=== PATIENT | male | born 1995 | race Caucasian/White ===

== ENCOUNTER 2018-01-11 09:54 | Emergency (ER) | payer OTHER ==
[2018-01-11 10:24] VITALS: RESP 22; TEMP 98.1
[2018-01-11] MEDS ORDERED: LORazepam 1 MG TAB PO STA (11:11)
--- NOTE | 2018-01-11 11:15 | ED ---
Anxiety HPI - General Chief Complaint: Anxiety Stated Complaint: Panic attack Time Seen by Provider: 01/11/18 10:53 Source: patient, RN notes reviewed Mode of arrival: ambulatory Limitations: no limitations - History of Present Illness Initial Comments: 22-year-old male presented from for anxiety. Patient states that he has a history anxiety and used to occasionally have to take Xanax but states that ever since she was started on Effexor he has been stable. He states that he is currently on vacation camping and states that he woke up with a panic attack. Patient states he feels very anxious heart racing. Patient states that it slightly improved after being in the hospital but still continues. Patient states this is his normal symptoms for his panic attack. Patient states that he would normally take a Xanax but states he does not have with him as he is on medication. Patient is not suicidal or homicidal. - Related Data Allergies/Adverse Reactions: Allergies Allergy/AdvReac Type Severity Reaction Status Date / Time No Known Allergies Allergy Verified 01/11/18 10:24 Review of Systems ROS Statement: Those systems with pertinent positive or pertinent negative responses have been documented in the HPI. ROS Other: All systems not noted in ROS Statement are negative. Past Medical History Past Medical History: No Reported History History of Any Multi-Drug Resistant Organisms: None Reported Past Surgical History: Appendectomy Past Psychological History: Anxiety Smoking Status: Never smoker Past Alcohol Use History: None Reported Past Drug Use History: None Reported General Exam Limitations: no limitations General appearance: alert, in no apparent distress, anxious Head exam: Present: atraumatic, normocephalic, normal inspection Eye exam: Present: normal appearance, PERRL, EOMI. Absent: scleral icterus, conjunctival injection, periorbital swelling ENT exam: Present: normal exam, normal oropharynx, mucous membranes moist Neck exam: Present: normal inspection, full ROM. Absent: tenderness, meningismus, lymphadenopathy Respiratory exam: Present: normal lung sounds bilaterally. Absent: respiratory distress, wheezes, rales, rhonchi, stridor Cardiovascular Exam: Present: regular rate, normal rhythm, normal heart sounds. Absent: systolic murmur, diastolic murmur, rubs, gallop, clicks Neurological exam: Present: alert, oriented X3, CN II-XII intact Psychiatric exam: Present: anxious Skin exam: Present: warm, dry, intact, normal color. Absent: rash Course Vital Signs 01/11/18 10:19 Temperature 98.1 F Pulse Rate 109 H Respiratory 22 Rate Blood Pressure 131/75 O2 Sat by Pulse 99 Oximetry Medical Decision Making - Medical Decision Making 22-year-old male present emergency department with chief complaint of anxiety. Patient was given Ativan emergency department he is stable and will be discharged. Disposition Clinical Impression: Acute anxiety, Panic attack Disposition: HOME SELF-CARE Condition: Stable Instructions: Generalized Anxiety Disorder (ED) Additional Instructions: Please return to the Emergency Department if symptoms worsen or any other concerns. Is patient prescribed a controlled substance at d/c from ED?: No Referrals: None,Stated [Primary Care Provider] - 1-2 days Time of Disposition: 11:15
[2018-01-11 11:37] VITALS: BP 128/70; PULSE 101
== END 2018-01-11 11:37 | disposition home or self-care (01) ==
LOC: EC 09:54
DX: F41.0 Panic disorder [episodic paroxysmal anxiety] (principal)
CPT/HCPCS: 99283

== ENCOUNTER 2024-12-14 15:02 | Emergency (ER) | payer BC ==
[2024-12-14 15:11] VITALS: RESP 18
--- NOTE | 2024-12-14 16:13 | ED ---
General Adult HPI - General Source: patient, family, RN notes reviewed, old records reviewed Mode of arrival: ambulatory Limitations: no limitations <Sarah Valdez - Last Filed: 12/14/24 21:45> <Malick Bush - Last Filed: 12/14/24 23:49> - General Chief complaint: Headache Stated complaint: R eye pain/Headache/Vomiting Time Seen by Provider: 12/14/24 15:19 - History of Present Illness Initial comments: 29-year-old male presenting with right-sided headache and eye pain. Reports 24 hours ago he started to have right-sided headache which she describes as constant but increases in intensity in waves. States he has had migraines in the past, but this feels slightly different. Denies sudden onset, or this being the worst headache of his life. Reports he has had some nausea and has vomited once. Of note he went to the shrub planter about 2 weeks ago and was told that he has increased intraocular pressure in the bilateral eyes, 24 on the right and 23 on the left. Denies any changes in vision, weakness or loss of sensation anywhere in the body. Reports the eye pain is so bad he he "wants to pull out his eye ". (Sarah Valdez) - Related Data Allergies Allergy/AdvReac Type Severity Reaction Status Date / Time No Known Allergies Allergy Verified 12/14/24 15:11 Review of Systems ROS Other: All systems not noted in ROS Statement are negative. <Sarah Valdez - Last Filed: 12/14/24 21:45> ROS Other: All systems not noted in ROS Statement are negative. <Malick Bush - Last Filed: 12/14/24 23:49> ROS Statement: Those systems with pertinent positive or pertinent negative responses have been documented in the HPI. Past Medical History Past Medical History: No Reported History History of Any Multi-Drug Resistant Organisms: None Reported Past Surgical History: Appendectomy Past Psychological History: Anxiety Smoking Status: Never smoker Past Alcohol Use History: Occasional Past Drug Use History: None Reported <Sarah Valdez - Last Filed: 12/14/24 21:45> General Exam Limitations: no limitations <Sarah Valdez - Last Filed: 12/14/24 21:45> - General Exam Comments Initial Comments: GENERAL: In mild distress at the time of examination. Pleasant and cooperative. HEENT: Head is atraumatic, normocephalic. Pupils are equal, round, and reactive to light on the left and sluggish on the right. Sclerae anicteric. Conjunctivae are clear. Mucus membranes of the mouth are moist. Neck is supple. RESPIRATORY: Clear to auscultation. No wheezes, rales, or rhonchi. No use of accessory muscles. Patient maintaining oxygen saturation greater than 92%. No chest wall tenderness is noted on palpation or with deep breathing. CARDIOVASCULAR: Regular rate and rhythm. S1 and S2 noted. No systolic or diastolic murmur auscultated. No JVD noted. No S3 or S4 noted. GASTROINTESTINAL: No distention noted. Abdomen soft and round. Normal active bowel sounds auscultated x 4 quadrants. No pain or tenderness noted upon palpation. INTEGUMENTARY: No cyanosis. No jaundice. No rashes noted. No cellulitis noted. EXTREMITIES: 2+ peripheral pulses. No evidence of peripheral edema. No calf t enderness noted. PSYCHIATRIC: Awake, alert, and oriented X 3. Appropriate affect. Intact judgement and insight. (Sarah Valdez) Course <Sarah Valdez - Last Filed: 12/14/24 21:45> Vital Signs 12/14/24 12/14/24 15:08 21:11 Temperature 97.9 F 98.5 F Pulse Rate 95 81 Respiratory 18 18 Rate Blood Pressure 143/89 128/91 O2 Sat by Pulse 99 97 Oximetry - Reevaluation(s) Reevaluation #1: 12/14/24 16:26 On reevaluation patient's intraocular pressure was measured as approximately 32 on the left and 35 on the right. This is an increase of 10 since his recent check of intraocular pressure approximately 2 weeks ago. (Sarah Valdez) Medical Decision Making - Lab Data Result diagrams: 12/14/24 16:00 12/14/24 16:00 <Sarah Valdez - Last Filed: 12/14/24 21:45> - Lab Data Result diagrams: 12/14/24 16:00 12/14/24 16:00 <Malick Bush - Last Filed: 12/14/24 23:49> - Medical Decision Making Was pt. sent in by a medical professional or institution (, PA, LABEL CUTTER, urgent care, hospital, or skilled nursing...) When possible be specific @ -No Did you speak to anyone other than the patient for history (EMS, parent, family, police, friend...)? What history was obtained from this source @ -Yes, family Did you review nursing and triage notes (agree or disagree)? Why? @ -I reviewed and agree with nursing and triage notes Were old charts reviewed (outside hosp., previous admission, EMS record, old EKG, old radiological studies, urgent care reports/EKG's, skilled nursing records)? Report findings @ -No old charts were reviewed Differential Diagnosis? @ -Differential Headache: Migraine, tension, cluster, carbon monoxide, central venous thrombosis, pension karma temporal arteritis, acute closure glaucoma, intercranial hemorrhage, mastoiditis, sinusitis, head injury, this is not meant to be an all-inclusive list. EKG interpreted by me (3pts min.). @ -As above X-rays interpreted by me (1pt min.). @ -None done CT interpreted by me (1pt min.). @ -CT head shows no acute intracranial process. U/S interpreted by me (1pt. min.). @ -None done What testing was considered but not performed or refused? (CT, X-rays, U/S, labs)? Why? @ -None What meds were considered but not given or refused? Why? @ -None Did you discuss the management of the patient with other professionals (professionals i.e. , PA, LABEL CUTTER, lab, RT, psych nurse, social worker clinical, boat buffer plastic, teacher, founder and chief technical officer, bilingual patient support caseworker)? Give summary @ -No Was smoking cessation discussed for >3mins.? @ -No Was critical care preformed (if so, how long)? @ -No Were there social determinants of health that impacted care today? How? (Homelessness, low income, unemployed, alcoholism, drug addiction, transportation, low edu. Level, literacy, decrease access to med. care, care home, rehab)? @ -No Was there de-escalation of care discussed even if they declined (Discuss DNR or withdrawal of care, Hospice)? DNR status @ -No What co-morbidities impacted this encounter? (DM, HTN, Smoking, COPD, CAD, Cancer, CVA, ARF, Chemo, Hep., AIDS, mental health diagnosis, sleep apnea, morbid obesity)? @ -None Was patient admitted / discharged? Hospital course, mention meds given and route, prescriptions, significant lab abnormalities, going to OR and other pertinent info. @ -29-year-old male presenting with complaints of right-sided headache and right-sided eye pain. Patient underwent intraocular pressure measuring which showed an average of 35 on the right and 32 on the left which was increased from the patient's last intraocular pressure measurement 2 weeks ago where it was 24 on the right and 23 in the left. Patient also received CT head which showed no acute intracranial process. Lab work was within normal limits. Dr. Bush spoke with ophthalmology at [facility] who recommended the patient's start acetazolamide and dorzolamide and to follow-up in their clinic in [place] tomorrow at 11:45 AM. Patient was given these medications to take home and discharged. Patient made aware he needs follow-up with his PCP and shrub planter in 1 to 2 days Undiagnosed new problem with uncertain prognosis? @ -No Drug Therapy requiring intensive monitoring for toxicity (Heparin, Nitro, Insulin, Cardizem)? @ -No Were any procedures done? @ -No Diagnosis/symptom? @ -Increased intraocular pressure, headache Acute, or Chronic, or Acute on Chronic? @ -Acute Uncomplicated (without systemic symptoms) or Complicated (systemic symptoms)? @ -Default Side effects of treatment? @ -No Exacerbation, Progression, or Severe Exacerbation? @ -No Poses a threat to life or bodily function? How? (Chest pain, [place], [place], pneumonia, PE, COPD, DKA, ARF, appy, cholecystitis, CVA, Diverticulitis, Homicidal, Suicidal, threat to staff... and all critical care pts) @ -No (Sarah Valdez) I personally saw the patient and performed the critical portion of the service. I discussed the patient care with the resident. I directed management, care planning and final disposition of the patient. This includes, but not limited to, review of all lab work, radiological studies, EKG's, consultations, vital signs, and nursing notes. EKG interpreted by me (3pts min.) @None done X-Rays interpreted by me (1 pt min.) @None CT interpreted by me ( 1pt min.) @CT brain reveals no obvious acute intracranial process. U/S interpreted by me (1 pt min.) @None Critical care time of 32 minutes excluding separately billable procedures was spent in conjunction with critical care activities provided by the Resident and Attending simultaneously. Frequent reevaluations as well as discussion with shrub planter. I spoke with [facility], Dr. Montanez who is on-call. We do not have an on-call shrub planter at our facility. He did require multiple hours before I received a call back and frequent reevaluations of the patient showed improvement in pain with morphine. I discussed the workup with Dr. Montanez who expressed that patient does not seem to need to be transferred to their facility tonight but wants to evaluate the patient tomorrow and appointment at 11:40 AM at [facility] in [facility]. Patient will be started on both acetazolamide 500 mg twice daily and given a dose here in the department as well as Dorsalomide-timolol drops twice daily given initial drops in the department instructed to take additional drops tonight before bed and start twice daily treatment tomorrow. Patient was in agreement this plan. Diagnosis/symptom? @ -Elevated bilateral IOP, headache Acute, or Chronic, or Acute on Chronic? @ -Acute Uncomplicated (without systemic symptoms) or Complicated (systemic symptoms)? @ -Complicated Side effects of treatment? @ -None Exacerbation, Progression, or Severe Exacerbation] @ -No Poses a threat to life or bodily function? @ -Unlikely at this time (Malick Bush) - Lab Data Lab Results 12/14/24 12/14/24 Range/Units 16:00 16:00 WBC 5.52 (4.50-10.00) 10*3/uL RBC 5.05 (4.40-5.60) 10*6/uL Hgb 15.6 (13.0-17.0) g/dL Hct 43.3 (39.6-50.0) % MCV 85.7 (80.0-97.0) fL MCH 30.9 (27.0-32.0) pg MCHC 36.0 (32.0-37.0) g/dL Plt Count 190 (140-440) 10*3/uL MPV 10.0 (9.5-12.2) fL Immature Gran % (Auto) 0.5 % Neutrophils % 53.3 % Lymphocytes % 34.1 % Monocytes % 8.3 % Eosinophils % 3.3 % Basophils % 0.5 % Immature Gran # 0.03 (0.00-0.04) 10*3/uL Neutrophils # 2.94 (1.80-7.70) 10*3/uL Lymphocytes # 1.88 (0.90-5.00) 10*3/uL Monocytes # 0.46 (0.20-1.00) 10*3/uL Eosinophils # 0.18 (0.04-0.35) 10*3/uL Basophils # 0.03 (0.00-0.10) 10*3/uL Sodium 140 (137-145) mmol/L Potassium 4.3 (3.5-5.1) mmol/L Chloride 106 (98-107) mmol/L Carbon Dioxide 23 (22-30) mmol/L Anion Gap 11 mmol/L BUN 13 (9-20) mg/dL Creatinine 0.91 (0.66-1.25) mg/dL Est GFR (CKD-EPI)AfAm >90 (>60 ml/min/1.73 sqM) Est GFR (CKD-EPI)NonAf >90 (>60 ml/min/1.73 sqM) Glucose 85 (74-99) mg/dL Calcium 9.8 (8.4-10.2) mg/dL Total Bilirubin 1.1 (0.2-1.3) mg/dL AST 43 (17-59) U/L ALT 35 (4-49) U/L Alkaline Phosphatase 45 (38-126) U/L Total Protein 8.1 (6.3-8.2) g/dL Albumin 5.1 H (3.5-5.0) g/dL Critical Care Time Critical Care Time: Yes Total Critical Care Time: 32 <Malick Bush - Last Filed: 12/14/24 23:49> Disposition <Sarah Valdez - Last Filed: 12/14/24 21:45> Is patient prescribed a controlled substance at d/c from ED?: No Time of Disposition: 21:33 <Malick Bush - Last Filed: 12/14/24 23:49> Clinical Impression: Headache, Elevated IOP Disposition: HOME SELF-CARE Condition: Fair Additional Instructions: Your diagnosis is headache with increased intraocular pressures. I spoke with Dr. Montanez of ophthalmology who wants you to follow-up with him at [facility] in [place] at 11:40 AM tomorrow 12/15/2024. Please take the acetaz mary 500 mg tablets twice per day. Please take your dorsalgia mild/timolol eyedrops twice per day. When you go home this evening, take another dose of the eyedrops. Return to the ER if any worsening symptoms. Follow-up with your physician tomorrow. Referrals: Nonstaff,Physician [Primary Care Provider] - 1-2 days
[2024-12-14 16:14] LABS: Basophils # (A) 0.03 10*3/uL (0.00-0.10); Basophils % (A) 0.5 %; Eosinophils # (A) 0.18 10*3/uL (0.04-0.35); Eosinophils % (A) 3.3 %; HCT 43.3 % (39.6-50.0); HGB 15.6 g/dL (13.0-17.0); Lymphocytes # (A) 1.88 10*3/uL (0.90-5.00); Lymphocytes % (A) 34.1 %; MCH 30.9 pg (27.0-32.0); MCV 85.7 fL (80.0-97.0); Monocytes # (A) 0.46 10*3/uL (0.20-1.00); Monocytes % (A) 8.3 %; Neutrophils # (A) 2.94 10*3/uL (1.80-7.70); Neutrophils % (A) 53.3 %; Platelet Count 190 10*3/uL (140-440); RBC 5.05 10*6/uL (4.40-5.60); RDW 12.6 % (11.5-14.5); WBC 5.52 10*3/uL (4.50-10.00)
[2024-12-14] MEDS: methylPREDNISolone SOD SUCCI 125 MG/2 ML VIAL IV STA (16:18)
[2024-12-14] MEDS: SODIUM CHLORIDE 0.9% 1,000 ML IV STA (16:20)
[2024-12-14] MEDS: ONDANSETRON 4 MG/2 ML VIAL IVP STA (16:21)
[2024-12-14] MEDS: ACETAMINOPHEN TAB 500 MG TAB PO STA (16:21)
[2024-12-14] MEDS: diphenhydrAMINE 50 MG/ML 1 ML VIAL IVP STA (16:22)
[2024-12-14 16:33] LABS: ALT 35 U/L (4-49); AST 43 U/L (17-59); African American GFR (CKD) >90 (>60 ml/min/1.73 sqM); Albumin 5.1 g/dL (3.5-5.0); Alkaline Phosphatase 45 U/L (38-126); Anion Gap 11 mmol/L; Blood Urea Nitrogen 13 mg/dL (9-20); Calcium 9.8 mg/dL (8.4-10.2); Carbon Dioxide 23 mmol/L (22-30); Chloride 106 mmol/L (98-107); Glucose 85 mg/dL (74-99); Non-African American GFR(CKD) >90 (>60 ml/min/1.73 sqM); Potassium 4.3 mmol/L (3.5-5.1); Sodium 140 mmol/L (137-145); Total Bilirubin 1.1 mg/dL (0.2-1.3); Total Protein 8.1 g/dL (6.3-8.2)
--- NOTE | 2024-12-14 17:24 | CT ---
EXAMINATION TYPE: CT brain wo con CT DLP: 1156.8 mGycm, Automated exposure control for dose reduction was used. DATE OF EXAM: 12/14/2024 5:14 PM COMPARISON: None. CLINICAL INDICATION:Male, 29 years old with history of migraine, right sided, right eye pain and righ t sided headache. Pt recently told increased pressure in right eye by eye doctor. TECHNIQUE: Brain: Multiple axial CT images of the brain were obtained without IV contrast. . Coronal and sagitta l reformats reviewed. FINDINGS: Brain: Extra-axial spaces: No abnormal extra-axial fluid collections. Calcified deposits along the superior sagittal sinus Ventricular system: Within normal limits Cerebral parenchyma: No acute intraparenchymal hemorrhage or mass effect. The monaco-white junction is well differentiated. Cerebellum: Unremarkable. Mass effect: No evidence of midline shift. Intracranial vasculature: unremarkable Soft tissues: Normal. Calvarium/osseous structures: No depressed skull fracture. Paranasal sinuses and mastoid air cells: The mastoid air cells are clear. Mild mucosal thickening of the right ethmoid sinus. Few mucous retention cysts or polyps within the bilateral maxillary sinuses and right sphenoid sinus. Largest within the right sphenoid sinus measuring up to 1.2 cm. Visualized orbits: Orbital contents are intact. IMPRESSION: No acute intracranial process. [facility], , 12/14/2024 5:22 PM
[2024-12-14] MEDS: KETOROLAC 15 MG/ML 1 ML VIAL IVP STA (17:42)
[2024-12-14] MEDS: MAGNESIUM SULFATE-D5W PMX 1 GM in DEXTROSE/WATER 1 100ML.BAG IVPB ONE (17:42)
[2024-12-14] MEDS: MORPHINE SULFATE 4 MG/ML SYRINGE IVP STA ×2 (17:43→21:48)
[2024-12-14] MEDS: acetaZOLAMIDE 250 MG TAB PO STA (21:47)
[2024-12-14] MEDS: DORZOLAMIDE-TIMOLOL 2.23%/0.68 10ML BTL BOTH EYES ONE (21:49)
[2024-12-14 22:06] VITALS: BP 128/91; PULSE 81; TEMP 98.5
== END 2024-12-14 22:06 | disposition home or self-care (01) ==
LOC: EC 15:02
DX: R51.9 Headache, unspecified (principal); H40.053 Ocular hypertension, bilateral
CPT/HCPCS: 36415; 80053; 85025; 70450; 99285; 96365; 96375; 96376; 96361; J2270; J1200; J2405; J3475; J1885; J2919